=== PATIENT | male | born 1995 | race Caucasian/White ===

== ENCOUNTER 2017-11-10 17:26 | Emergency (ER) | payer OTHER ==
[~2017-11-10] VITALS: Ht 172.7 cm; Wt 109.7 kg
[~2017-11-10 17:26] MED LIST: ACET500C5 PO; CEPH-443 PO; TRAM50TA2 PO
[2017-11-10 17:28] VITALS: Ht 172.7 cm; Wt 109.7 kg
[2017-11-10] MEDS ORDERED: IBUP800T25 PO (19:52)
[2017-11-10] MEDS ORDERED: SODI126M NASAL (19:52)
[2017-11-10] MEDS ORDERED: IBUPROFEN 800 MG TAB PO ONE (20:00)
[2017-11-10 21:58] VITALS: TEMP 97.9
--- NOTE | 2017-11-11 06:01 | ERD ---
ER Documentation Chief Complaint Chief Complaint FEVER , COUGH , BODY ACHE HPI 21-year-old male complaining of fever, body ache, and cough 5 days. Patient had posttussive vomiting. He had diarrhea since this morning, 3-4 episodes of nonbloody diarrhea. He took Tylenol at home for his symptoms, last dose was about 2 hours ago. Denies abdominal pain. Denies shortness of breath. Both his and 2-year-old son had since had similar symptoms. ROS All systems reviewed and are negative except as per history of present illness. Medications Home Meds Active Scripts Sodium Chloride (Saline Nasal Mist) 126 Ml Mist, 2 SPRAY NASAL Q2H Y for NASAL CONGESTION, #1 BOTTLE Prov:RADHA HEALY PATTERN DRAFTER 11/10/17 Ibuprofen* (Motrin*) 800 Mg Tab, 800 MG PO Q6H Y for PAIN AND OR ELEVATED TEMP, #30 TAB Prov:RADHA HEALY NP 11/10/17 Cephalexin* (Keflex*) 500 Mg Capsule, 500 MG PO QID for 7 Days, CAP Prov:KIN SPEARS PA-C 10/09/16 Tramadol HCl (Tramadol HCl) 50 Mg Tablet, 50 MG PO Q6 Y for PAIN, #10 TAB Prov:JEFFRY PRATT, NEFTALY 10/05/16 Acetaminophen* (Tylophen*) 500 Mg Capsule, 1 CAP PO Q6H Y for PAIN AND OR ELEVATED TEMP, #30 CAP Prov:JOSE NJ PA-C 07/07/15 Allergies Allergies: Coded Allergies: Penicillins (Verified Allergy, Unknown, 10/09/16) PMhx/Soc Medical and Surgical Hx: pt denies Medical Hx, pt denies Surgical Hx History of Surgery: No Anesthesia Reaction: No Hx Neurological Disorder: No Hx Respiratory Disorders: No Hx Cardiac Disorders: No Hx Psychiatric Problems: No Hx Miscellaneous Medical Probl: No Hx Alcohol Use: Yes (OOC) Hx Substance Use: Yes (MJ) Hx Tobacco Use: No Smoking Status: Never smoker Physical Exam Vitals Vital Signs Date Time Temp Pulse Resp B/P Pulse Ox O2 Delivery O2 Flow Rate FiO2 11/10/17 21:58 97.9 11/10/17 17:28 101.4 117 18 137/65 98 Physical Exam General: Well-developed, well-nourished, conscious and coherent, in no distress Skin: Warm and dry without rash, good texture and turgor Head: Normocephalic without evidence of trauma Eyes: Sclera and conjunctivae normal; pupils equal, round, and reactive to light; extraocular movements are intact Ears: Canals are patent. Tympanic membranes are clear Nose/Face: Nasal mucosa erythematous and swollen Mouth/throat: Mucous membranes are moist. Posterior pharynx clear without erythema or exudates Neck: Supple without meningismus or adenopathy. Carotids are equal. Trachea midline. No bruits or JVD Chest: Normal AP diameter. Good expansion without retractions. Nontender. Lungs are clear to auscultate bilaterally with good tidal volume Heart: Regular rate and rhythm. No murmur, rub, or gallops heard Abdomen: Soft and nontender without masses, guarding, or rebound. Bowel sounds are active. No hepatosplenomegaly Extremities: Full range of motion. Good strength bilaterally. No clubbing, cyanosis, or edema. Peripheral pulses are intact. Sensation intact Neuro: Alert and oriented 4, GCS 15. Cranial nerves grossly intact. Motor and sensory exams nonfocal. Moves all extremities. Speech clear. Gait normal Results 24 hrs Current Medications Medications (Trade) Dose Ordered Sig/Vishal Route PRN Reason Start Time Stop Time Status Last Admin Dose Admin Ibuprofen (Motrin) 800 mg ONCE ONCE PO 11/10/17 20:00 11/10/17 20:01 DC 11/10/17 19:56 Procedures/MDM Well-appearing 21-year-old male present ED with flulike symptoms. Although his influenza test is negative, both his and son who has similar symptoms have tested positive. I presume patient also has influenza. Since patient symptom has persisted for more than 72 hours, I do not feel Tamiflu is indicated. Ibuprofen given to the patient in the ED for fever reduction. Patient is in no respiratory distress. Lungs are clear to auscultate. I doubt that patient has pneumonia or bronchitis. Patient appears well, stable for discharge and outpatient management. Medical decision making shared with patient and family. Education provided to patient and family. Patient and family expressed understanding of the plan. Medications on discharge: Ibuprofen, saline nasal spray. Follow-up: Primary care provider in 2-3 days or return to ED if worse. Disclaimer: Inadvertent spelling and grammatical errors are likely due to EHR/ dictation software use and do not reflect on the overall quality of patient care. Also, please note that the electronic time recorded on this note does not necessarily reflect the actual time of the patient encounter. Departure Diagnosis: Primary Impression: Influenza Condition: Stable Patient Instructions: Influenza (Adult) Referrals: [facility] YOU HAVE RECEIVED A MEDICAL SCREENING EXAM AND THE RESULTS INDICATE THAT YOU DO NOT HAVE A CONDITION THAT REQUIRES URGENT TREATMENT IN THE EMERGENCY DEPARTMENT. FURTHER EVALUATION AND TREATMENT OF YOUR CONDITION CAN WAIT UNTIL YOU ARE SEEN IN YOUR DOCTORS OFFICE WITHIN THE NEXT 1-2 DAYS. IT IS YOUR RESPONSIBILITY TO MAKE AN APPOINTMENT FOR FOLOW-UP CARE. IF YOU HAVE A PRIMARY DOCTOR --you should call your primary doctor and schedule an appointment IF YOU DO NOT HAVE A PRIMARY DOCTOR YOU CAN CALL OUR PHYSICIAN REFERRAL HOTLINE AT IF YOU CAN NOT AFFORD TO SEE A PHYSICIAN YOU CAN CHOSE FROM THE FOLLOWING [facility] [address] [facility] [facility] [address] [facility] [facility] [address] [facility] [facility] [address] [facility] [facility] [facility] [address]. [facility]. [address] Additional Instructions: Call your primary care doctor TOMORROW for an appointment during the next 2-3 days.See the doctor sooner or return here if your condition worsens before your appointment time. RADHA HEALY NP Nov 11, 2017 06:01
== END 2017-11-10 22:32 | disposition home or self-care (01) ==
LOC: FTE 17:26
DX: J11.1 Influenza due to unidentified influenza virus with other respiratory manifestations (principal)
CPT/HCPCS: 87400; 99283